=== PATIENT | female | born 2000 | race Hispanic/Latino ===

== ENCOUNTER 2024-08-27 15:39 | Inpatient (IN) | payer MEDICAID, OTHER ==
[2024-08-29] MEDS ORDERED: Methylergonovine 0.2 MG/ML VIAL IM PRN (08:22)
[2024-08-29] MEDS ORDERED: Misoprostol 200 MCG TAB PR PRN (08:22)
[2024-08-29] MEDS ORDERED: Acetaminophen 500 MG TAB PO PRN (08:22)
[2024-08-29] MEDS ORDERED: Carboprost 250 MCG/ML AMP IM PRN (08:22)
[2024-08-29] MEDS ORDERED: Ibuprofen 800 MG TAB PO PRN (08:22)
[2024-08-29] MEDS ORDERED: fentaNYL 50 mcg/mL 1 mL Vial SLOW IVP PRN (08:22)
[2024-08-29] MEDS ORDERED: HYDROcodone/Acetaminophen 5/325 mg Tablet PO PRN (08:22)
[2024-08-29] MEDS ORDERED: Promethazine HCl 25 MG/ML VIAL IM PRN ×2 (08:22→21:21)
[2024-08-29] MEDS ORDERED: Lidocaine 1% (PF) 30 ML VIAL SC PRN (08:22)
[2024-08-29] MEDS ORDERED: Diphenoxylate HCl/Atropine Tablet PO PRN (08:22)
[2024-08-29] MEDS ORDERED: Oxytocin 30 units/NS 500 ML 500 ML IV SCH ×2 (08:22)
[2024-08-29] MEDS ORDERED: hydrALAZINE 20 MG/ML VIAL SLOW IVP PRN (08:22)
[2024-08-29] MEDS: Misoprostol 100 MCG TAB VAG SCH (08:34)
[2024-08-29 08:55] LABS: Hematocrit 38.7 % (34.9-44.5); Hemoglobin 13.4 g/dL (12.0-15.5); Mean Corpuscular HGB CONC 34.6 g/dL (32.0-36.0); Mean Corpuscular Hemoglobin 30.9 pg (27.0-33.0); Mean Corpuscular Volume 89.2 fL (81.6-98.3); Mean Platelet Volume 11.4 fL (7.4-10.4); Platelet Count 190 10x3/uL (150-450); RBC Distribution Width 13.9 % (11.5-14.5); Red Blood Cell (RBC) Count 4.34 10x6/uL (3.90-5.03); White Blood Cell (WBC) Count 8.8 10x3/uL (3.5-10.5)
[2024-08-29 09:12] LABS: HBsAg Index 0.22 S/CO (0-0.99); Hep B Surf Ag - L&D Non-Reactive S/CO (NonReactive)
[2024-08-29 09:13] LABS: Syphilis Antibody Nonreactive (Nonreactive); Syphilis Antibody Index 0.02 S/CO (<1.00 Non-Reactive)
[2024-08-29 09:30] VITALS: BMI 29.6
[2024-08-29] MEDS: fentaNYL/Ropivacaine Epidural 100 ML ONE (20:57)
[2024-08-29] MEDS: Lactated Ringer's 1,000 ML IV SCH (20:58)
[2024-08-29] MEDS: Oxytocin 30 units/NS 500 ML 500 ML IV SCH (21:06)
[2024-08-29] MEDS ORDERED: ePHEDrine Sulfate 50 MG/10 ML VIAL SLOW IVP PRN (21:21)
[2024-08-29] MEDS ORDERED: Lactated Ringer's 500 ML IV PRN (21:21)
[2024-08-29] MEDS ORDERED: Ondansetron PF 4 MG/2 ML Vial IVP PRN (21:21)
[2024-08-29] MEDS ORDERED: Acetaminophen 325 MG TAB PO PRN (21:21)
[2024-08-29] MEDS ORDERED: Moisturizing Cream (Eucerin) 113 GM JAR TOP PRN (21:21)
[2024-08-29] MEDS ORDERED: diphenhydrAMINE 50 MG/ML VIAL IVP PRN (21:21)
[2024-08-29] MEDS ORDERED: Naloxone HCl 0.4 mg/ml Vial IVP PRN ×2 (21:21)
[2024-08-29] MEDS ORDERED: Communication Order-Pharmacy FS SCH (21:30)
[2024-08-30] MEDS: Ondansetron PF 4 MG/2 ML Vial IVP PRN (02:21)
[2024-08-30] MEDS: fentaNYL 2 mcg/Ropivacaine 0.2% Epidural 100 ML CADD EPIDURAL SCH (06:46)
[2024-08-30] MEDS: Carboprost 250 MCG/ML AMP ONE (15:40)
[2024-08-30] MEDS: Methylergonovine 0.2 MG/ML VIAL ONE (15:46)
[2024-08-30] MEDS: Tranexamic Acid 1,000 MG/10 ML VIAL IVP PRN (15:46)
[2024-08-30] MEDS: Tranexamic Acid 1,000 MG/10 ML VIAL ONE (18:52)
[2024-08-30] MEDS ORDERED: Diphenoxylate HCl/Atropine Tablet PO PRN (19:13)
[2024-08-30] MEDS ORDERED: Bisacodyl 10 MG SUPP PR PRN (19:13)
[2024-08-30] MEDS ORDERED: diphenhydrAMINE 25 MG CAP PO PRN (19:13)
[2024-08-30] MEDS ORDERED: Lanolin Ointment 7 GM TUBE TOP PRN (19:13)
[2024-08-30] MEDS ORDERED: hydrALAZINE 20 MG/ML VIAL SLOW IVP PRN (19:13)
[2024-08-30] MEDS ORDERED: HYDROcodone/Acetaminophen 5/325 mg Tablet PO PRN (19:13)
[2024-08-30] MEDS ORDERED: Milk Of Magnesia 30 ML UDCUP PO PRN (19:13)
[2024-08-30] MEDS ORDERED: Benzocaine-Menthol 82.5 ML CAN TOP PRN (19:13)
[2024-08-30] MEDS ORDERED: Ondansetron PF 4 MG/2 ML Vial IVP PRN (19:13)
[2024-08-30] MEDS ORDERED: Promethazine HCl 25 MG/ML VIAL IM PRN (19:13)
[2024-08-30] MEDS: Ferrous Sulfate 325 MG TAB PO SCH (19:54)
[2024-08-30] MEDS: Docusate 100 MG CAP PO SCH (21:24)
[2024-08-30] MEDS: Ibuprofen 800 MG TAB PO SCH (21:24)
[2024-08-31] MEDS: Ferrous Sulfate 325 MG TAB PO SCH (08:38)
[2024-08-31] MEDS: Prenatal Vitamin 1 TAB PO SCH (08:38)
[2024-08-31] MEDS: Boostrix 0.5 ML (Tdap) VIAL (>/=7 yrs of age) IM ONE (08:38)
[2024-09-01 07:55] VITALS: BP 98/62; TEMP 98
== END 2024-09-01 18:31 | disposition home or self-care (01) | DRG 807 ==
LOC: CSHLD 08-28 21:10 → CSHPED 08-30 18:15
PROVIDERS: ADMIT Family Medicine; ATTEND Family Medicine
PROC: 10907ZC Drainage of Amniotic Fluid, Therapeutic from Products of Conception, Via Natural or Artificial Opening (ICD-10-PCS; principal; 2024-08-29)
PROC: 10E0XZZ Delivery of Products of Conception, External Approach (ICD-10-PCS; 2024-08-30)
PROC: 0KQM0ZZ Repair Perineum Muscle, Open Approach (ICD-10-PCS; 2024-08-30)
PROC: 0UQMXZZ Repair Vulva, External Approach (ICD-10-PCS; 2024-08-30)
DX: O48.0 Post-term pregnancy (principal); Z37.0 Single live birth; Z3A.40 40 weeks gestation of pregnancy; Z79.82 Long term (current) use of aspirin; O70.1 Second degree perineal laceration during delivery; O62.2 Other uterine inertia; O69.81X0 Labor and delivery complicated by cord around neck, without compression, not applicable or unspecified
CPT/HCPCS: 51702; 85027; 86780; 86850; 86900; 86901; 87340; J2210; J2405; J2590; J3490; J7120

== ENCOUNTER 2024-09-29 19:47 | Emergency (ER) | payer MEDICAID | END 2024-09-29 20:28 | disposition home or self-care (01) | LOC: CSHERS 19:47 | DX: O91.22 Nonpurulent mastitis associated with the puerperium (principal) | CPT/HCPCS: 99283 ==